=== PATIENT | female | born 1995 | race Caucasian/White ===

== ENCOUNTER 2016-05-26 23:00 | Emergency (ER) | payer MEDICAID ==
[~2016-05-26] VITALS: Ht 160 cm; Wt 68.0 kg
[2016-05-27] MEDS ORDERED: ONDANSETRON ODT 4 MG TAB PO ONE (00:30)
[2016-05-27] MEDS ORDERED: MORPHINE SULFATE 4 MG/ML SYRG IV ONE (00:30)
[2016-05-27] MEDS ORDERED: MORPHINE SULFATE 4 MG/ML SYRG IM ONE ×2 (00:45→02:30)
[2016-05-27] MEDS ORDERED: LIDOCAINE 1% HCL (LOCAL ANESTH.) INJ 20ML MDV ONE (00:48)
[2016-05-27 01:16] VITALS: BP 128/67
[2016-05-27] MEDS ORDERED: BACITRACIN-POLYMYXIN B TOPICAL OINT UD TOP ONE (02:10)
== END 2016-05-27 02:44 | disposition home or self-care (01) ==
LOC: ER 23:02
DX: S51.811A Laceration without foreign body of right forearm, initial encounter (principal); J45.909 Unspecified asthma, uncomplicated; F17.210 Nicotine dependence, cigarettes, uncomplicated; Z91.018 Allergy to other foods; W45.8XXA Other foreign body or object entering through skin, initial encounter; Y93.89 Activity, other specified; Y99.8 Other external cause status; Y92.89 Other specified places as the place of occurrence of the external cause
CPT/HCPCS: 12002; 96372; 99284; J2001; J2270; Q0162

== ENCOUNTER 2016-06-24 13:14 | Emergency (ER) | payer MEDICAID ==
[~2016-06-24] VITALS: Ht 160 cm; Wt 63.5 kg
[2016-06-24 13:25] VITALS: BP 107/61
== END 2016-06-24 15:12 | disposition home or self-care (01) ==
LOC: ER 13:14
DX: J20.9 Acute bronchitis, unspecified (principal); F17.210 Nicotine dependence, cigarettes, uncomplicated; G89.29 Other chronic pain; M54.5 Low back pain

== ENCOUNTER 2016-10-25 16:47 | Emergency (ER) | payer MEDICAID ==
[~2016-10-25] VITALS: Ht 160 cm; Wt 72.6 kg
[2016-10-25 16:53] VITALS: BP 146/92
[2016-10-25] MEDS ORDERED: LORazepam 2MG/ML-1ML VIAL IM ONE (17:30)
[2016-10-25] MEDS ORDERED: KETOROLAC TROMETH 60MG/2ML VIAL IM ONE (17:30)
== END 2016-10-25 18:08 | disposition home or self-care (01) ==
LOC: ER 16:49
DX: R07.89 Other chest pain (principal); F41.9 Anxiety disorder, unspecified; J45.909 Unspecified asthma, uncomplicated; F17.210 Nicotine dependence, cigarettes, uncomplicated; Z91.018 Allergy to other foods
CPT/HCPCS: 96372; 99284; J1885; J2060